=== PATIENT | male | born 1955 | race Caucasian/White ===

== ENCOUNTER 2018-01-20 14:23 | Emergency (ER) | payer OTHER ==
[~2018-01-20] VITALS: Ht 182.9 cm; Wt 81.7 kg
[~2018-01-20 14:23] MED LIST: ACETAMINOPHEN-1 EAC1 PO; COLCHICINE0.6 MG PO; FLONASE 0.05%50 MCG NASAL; IBUPROFEN 800800 MG PO; LEVOTHYROXIN0.025 MG PO; LOSARTAN POTAS100 MG PO; NEXIUM40 MG PO; NORCO 5-325 TA1 EACH PO; NORVASC5 MG PO; PRAVACHOL40 MG PO; PROBENECID500 MG PO
[2018-01-20] MEDS ORDERED: ALLOPURINOL 10100 M1 PO (14:38)
[2018-01-20 15:44] VITALS: BP 133/87
== END 2018-01-20 15:44 | disposition home or self-care (01) ==
LOC: M.ERS 14:23
DX: S70.12XA Contusion of left thigh, initial encounter (principal); S20.212A Contusion of left front wall of thorax, initial encounter; I10 Essential (primary) hypertension; K21.9 Gastro-esophageal reflux disease without esophagitis; W11.XXXA Fall on and from ladder, initial encounter; Y93.89 Activity, other specified; Y92.89 Other specified places as the place of occurrence of the external cause; Y99.8 Other external cause status

== ENCOUNTER 2019-06-23 16:42 | Emergency (ER) | payer MEDICARE ==
[~2019-06-23] VITALS: Ht 182.9 cm; Wt 83.9 kg
[~2019-06-23 16:42] MED LIST changes: +ALLOPURINOL 10100 M1 PO
[2019-06-23] MEDS ORDERED: VITAMIN C500 M2 PO (17:16)
[2019-06-23] MEDS ORDERED: MULTI VITAMIN1 EACH PO (17:16)
[2019-06-23] MEDS ORDERED: ASA81BEC PO (17:16)
[2019-06-23] MEDS ORDERED: VITAMIN B-121000 MC2 PO (17:17)
[2019-06-23] MEDS ORDERED: BETA CAROT10000 UNIT PO (17:17)
[2019-06-23] MEDS ORDERED: BEE POLLEN550 MG PO (17:17)
[2019-06-23] MEDS ORDERED: GLUCOSAMINE &1 EACH PO (17:18)
[2019-06-23 17:26] LABS: HEMATOCRIT 39.6 % (42.0-52.0); HEMOGLOBIN 13.8 gm/dL (14.0-18.0); MCH 32.8 pg (26.0-34.0); MCHC 34.7 g/dL (28.0-37.0); MCV 94.4 fL (80.0-100.0); MPV 8.8 fl. (7.2-11.1); NUCLEATED RBCS 0 /100WBC; PLATELET COUNT* 140 thou/uL (150-400); RDW-CV 12.6 % (10.5-14.5); WBC 5.6 thou/uL (4.0-11.0)
[2019-06-23 17:36] LABS: CALCIUM 8.5 mg/dL (8.5-10.1); CREATININE 1.4 mg/dL (0.6-1.3); POTASSIUM 3.1 mmol/L (3.5-5.1)
[2019-06-23 17:40] LABS: TOTAL BILIRUBIN 0.7 mg/dL (<0.1-1.0); TOTAL PROTEIN 7.1 g/dL (6.4-8.2)
[2019-06-23 17:53] LABS: ABSOLUTE BASOPHILS 0.1 thou/uL (0.0-0.2); ABSOLUTE LYMPHOCYTES 0.3 thou/uL (0.8-5.3); ABSOLUTE MONOCYTES 0.3 thou/uL (0.0-1.2); ABSOLUTE NEUTROPHILS 4.9 thou/uL (1.6-8.1)
[2019-06-23 17:54] LABS: PLATELET ESTIMATE ADEQUATE
[2019-06-23] MEDS ORDERED: ZOFRAN ODT4 MG PO (18:18)
[2019-06-23] MEDS ORDERED: K-TAB10 MEQ PO (18:20)
[2019-06-23 18:58] VITALS: BP 119/74
--- NOTE | 2019-06-24 11:42 | EKG ---
[place] [address] ELECTROCARDIOGRAM REPORT Name: ALEXANDERMICALENARD Padilla Room: [facility] Andry#: [id number] Admission: 06/23/19 Attend Phys: Discharge: 06/23/19 Date of : 53 Report #: [id number] THIS REPORT FOR: //name// [facility] ED Test Date: 2019-06-23 Test Time: 17:11:39 Pat Name: LENARD OTERO Department: Room: Gender: M Workers Compensation Consultant: : 1955 Requested By: Jeovany Gould Order Number: [id number] MD: Lucas Faye Measurements Intervals [place] Rate: 92 P: 72 AK: 138 QRS: 24 QRSD: 83 T: 15 QT: 346 QTc: 429 Interpretive Statements Sinus rhythm Abnormal R-wave progression, early transition Borderline T abnormalities, inferior leads No previous ECG available for comparison Electronically Signed On 06-24-2019 11:42:28 [employer] by Lucas Faye [email or web address] <ELECTRONICALLY SIGNED> By: Lucas Faye MD, [facility] 06/24/19 1142 1710 10 Lucas Faye MD, FACC /EPI
== END 2019-06-23 18:59 | disposition home or self-care (01) ==
LOC: M.ERS 16:42
PROVIDERS: Nurse Practitioner Psychiatric/Mental Health
DX: N28.9 Disorder of kidney and ureter, unspecified (principal); R11.2 Nausea with vomiting, unspecified; E87.6 Hypokalemia; I10 Essential (primary) hypertension; E03.9 Hypothyroidism, unspecified; E78.5 Hyperlipidemia, unspecified; K21.9 Gastro-esophageal reflux disease without esophagitis